=== PATIENT | male | born 1965 | race Caucasian/White ===

== ENCOUNTER 2020-07-12 12:15 | Emergency (ER) | payer OTHER ==
[~2020-07-12 12:15] MED LIST: APAP500 PO; ASPIRIN EC81 M1; CARVEDILOL25 MG PO; CRESTOR10 MG PO; GLUCOPHAGE500 MG; HUMALOG100 UNIT/2 SQ; HUMULINU500; LANTUS; LISINOPRIL20 MG; METOPROLOL SUCC25 M1; TRICOR145 MG
== END 2020-07-12 12:37 ==
LOC: ER 12:15
DX: I46.9 Cardiac arrest, cause unspecified (principal); I10 Essential (primary) hypertension; E11.9 Type 2 diabetes mellitus without complications; I25.2 Old myocardial infarction; E78.5 Hyperlipidemia, unspecified; Z95.0 Presence of cardiac pacemaker; Z79.4 Long term (current) use of insulin; Z79.899 Other long term (current) drug therapy; Z79.82 Long term (current) use of aspirin